=== PATIENT | female | born 1950 | race Caucasian/White ===

== ENCOUNTER 2022-01-29 06:32 | Emergency (ER) | payer MEDICARE ==
[~2022-01-29 06:32] MED LIST: CYMBALTA 30MG C30 MG PO; FLEXERIL10 MG PO; HCTZ12.5 MG PO; ISOSORBIDE MONO60 MG PO; LIPITOR 10MG TA10 MG PO; LOPRESSOR50 MG PO; NEURONTIN400 MG PO; PRINIVIL20 MG PO; PROZAC20 MG PO; SYNTHROID150 MCG PO; TRAZODONE 150M150 MG PO; ZOFRAN4 MG PO
[2022-01-29 07:34] LABS: BILIRUBIN 3+ mg/dL (NEGATIVE); BLOOD 3+ Ery/uL (NEGATIVE); CLARITY CLOUDY (CLEAR); COLOR RED (YELLOW); GLUCOSE (U) TRACE mg/dL (NORMAL); LEUKOCYTES 3+ Leu/uL (NEGATIVE); NITRITE POSITIVE (NEGATIVE); PROTEIN 3+ mg/dL (NEGATIVE); pH 7.5 (5.0-9.0)
[2022-01-29 07:42] LABS: BACTERIA 2+; URINARY RBC TNTC
[2022-01-29] MEDS ORDERED: ONDANSETRON ODT4 MG PO (07:46)
[2022-01-29] MEDS ORDERED: MACROBID100 MG PO (07:46)
== END 2022-01-29 08:02 | disposition home or self-care (01) ==
LOC: FER 06:32
PROVIDERS: Emergency Medicine
DX: N39.0 Urinary tract infection, site not specified (principal); I10 Essential (primary) hypertension; I48.91 Unspecified atrial fibrillation; Z88.5 Allergy status to narcotic agent; Z79.82 Long term (current) use of aspirin; Z79.01 Long term (current) use of anticoagulants; Z79.899 Other long term (current) drug therapy
CPT/HCPCS: 81001; 99283